=== PATIENT | female | born 1970 ===

== ENCOUNTER 2017-03-07 11:57 | Emergency (ER) | payer OTHER ==
[2017-03-07 12:20] VITALS: BMI 42.4
[2017-03-07 12:26] VITALS: BP 103/60; PULSE 87; RESP 19; TEMP 98.4; O2SAT 100
--- NOTE | 2017-03-07 13:37 | ED PDOC ---
Arrival/HPI - General Historian: Patient - General Chief Complaint: Lower Extremity Problem/Injury Time Seen by Provider: 03/07/17 12:34 - History of Present Illness Narrative History of Present Illness (Text): 03/07/17 13:35 46yo female present with complaint of left knee pain. States pain is usually worse in the morning when she wake up .States knee usually feels stiff and swollen. She saw her PMD and was advised to get US to r/o DVT. she did not take any pain medication. she otherwise denies SOB, chest pain, recent travel, OCP use, trauma, any other complaint. (Nadege Sawant A) Past Medical History - Provider Review Nursing Documentation Reviewed: Yes - Infectious Disease Hx of Infectious Diseases: None - Cardiac Hx Cardiac Disorders: Yes Hx Hypertension: Yes - Pulmonary Hx Respiratory Disorders: No - Neurological Hx Neurological Disorder: No - HEENT Hx HEENT Disorder: No - Renal Hx Renal Disorder: No - Endocrine/Metabolic Hx Endocrine Disorders: No - Hematological/Oncological Hx Blood Disorders: No - Integumentary Hx Dermatological Disorder: Yes Other/Comment: seasonal allergies - Musculoskeletal/Rheumatological Hx Musculoskeletal Disorders: No - Gastrointestinal Hx Gastrointestinal Disorders: No - Genitourinary/Gynecological Hx Genitourinary Disorders: No - Psychiatric Hx Psychophysiologic Disorder: Yes Hx Depression: Yes Hx Substance Use: No - Surgical History Other/Comment: 3 vaginal births, last one 3 years ago. - Anesthesia Hx Anesthesia: Yes Hx Anesthesia Reactions: No Family/Social History - Physician Review Nursing Documentation Reviewed: Yes Family/Social History: Unknown Family HX Smoking Status: Never Smoked Hx Alcohol Use: Yes Frequency of alcohol use: Socially Hx Substance Use: No Allergies/Home Meds Allergies/Adverse Reactions: Allergies No Known Allergies Allergy (Verified 03/07/17 12:22) Home Medications: Home Meds Medication Instructions Recorded Confirmed Cetirizine HCl [Zyrtec] 10 mg PO DAILY 03/07/17 03/07/17 Losartan [Cozaar] 12.5 mg PO DAILY 03/07/17 03/07/17 Montelukast [Singulair] 10 mg PO HS 03/07/17 03/07/17 Sertraline HCl [Zoloft] 25 mg PO DAILY 03/07/17 03/07/17 Review of Systems - Physician Review All systems were reviewed & negative as marked: Yes - Review of Systems Constitutional: Normal Eyes: Normal ENT: Normal Respiratory: Normal Cardiovascular: Normal Gastrointestinal: Normal Genitourinary Female: Normal Musculoskeletal: Arthralgias (LEft knee pain) Skin: Normal Neurological: Normal Endocrine: Normal Hemo/Lymphatic: Normal Psychiatric: Normal Physical Exam Vital Signs Reviewed: Yes Temperature: Afebrile Blood Pressure: Normal Pulse: Regular Respiratory Rate: Normal Appearance: Positive for: Well-Appearing, Non-Toxic, Comfortable, Other ( Morbidly obese) Pain Distress: None Mental Status: Positive for: Alert and Oriented X 3 - Systems Exam Head: Present: Atraumatic, Normocephalic Pupils: Present: PERRL Extroacular Muscles: Present: EOMI Conjunctiva: Present: Normal Mouth: Present: Moist Mucous Membranes Neck: Present: Normal Range of Motion Respiratory/Chest: Present: Clear to Auscultation, Good Air Exchange. No: Respiratory Distress, Accessory Muscle Use Cardiovascular: Present: Regular Rate and Rhythm, Normal S1, S2. No: Murmurs Abdomen: Present: Normal Bowel Sounds. No: Tenderness, Distention, Peritoneal Signs Back: Present: Normal Inspection Upper Extremity: Present: Normal Inspection. No: Cyanosis, Edema Lower Extremity: Present: NORMAL PULSES, Normal ROM, Neurovascularly Intact. No : Edema, CALF TENDERNESS, Cyanosis, Tenderness, Swelling, Erythema, Deformity, Temperature Abnormalties, Capillary Refill < 2 s Neurological: Present: GCS=15, CN II-XII Intact, Speech Normal Skin: Present: Warm, Dry, Normal Color. No: Rashes Psychiatric: Present: Alert, Oriented x 3, Normal Insight, Normal Concentration Vital Signs Temp Pulse Resp BP Pulse Ox 03/07/17 12:25 98.4 F 87 19 103/60 100 Medical Decision Making ED Course and Treatment: I was available for consultation during PA evaluation. The chart reviewed by me , and I agree with disposition. The documented history was done by the physician senior microsoft net developer. The documented physical exam was done by the physician senior microsoft net developer. The documented procedures were done by the physician senior microsoft net developer. (Anthony Whiting) Per US tech - Doppler was negative for DVT Left knee xray - DJD. No acute finding Result was DW the pt. She was referred to ortho. Rx of Tramadol was given for pain. TRT ED for any new or worsening symptoms. (Nadege Sawant A) - RAD Interpretation Radiology Orders: 03/07/17 12:34 KNEE LEFT 2 VIEWS (AP & LAT) [RAD] Stat DUPLEX LOWER EXTRM VEIN BILAT [US] Stat - Medication Orders Current Medication Orders: Discontinued Medications Ketorolac Tromethamine (Toradol) 60 mg IM STAT STA Stop: 03/07/17 13:38 Last Admin: 03/07/17 13:48 Dose: 60 mg Ketorolac Tromethamine (Toradol) Confirm Administered Dose 60 mg .ROUTE .STK- MED ONE Stop: 03/07/17 13:48 Disposition/Present on Arrival - Present on Arrival Any Indicators Present on Arrival: No History of DVT/PE: No History of Uncontrolled Diabetes: No Urinary Catheter: No History of Decub. Ulcer: No History Surgical Site Infection Following: None - Disposition Have Diagnosis and Disposition been Completed?: Yes Disposition Time: 13:45 Patient Plan: Discharge - Disposition Diagnosis: Knee pain Disposition: HOME/ ROUTINE Condition: STABLE Discharge Instructions (ExitCare): Knee Pain (ED) Additional Instructions: Follow up with your Doctor/orthopedist Return to ED for any new or worsening symptoms Prescriptions: traMADol [Ultram] 50 mg PO TID #10 tab Referrals: Darnell Rosas MD [Staff Provider] - Follow up with primary
--- NOTE | 2017-03-07 13:37 | RAD ---
PROCEDURE: Left Knee Radiographs. HISTORY: COMPARISON: None available FINDINGS: BONES: No acute displaced fracture. Degenerative changes including osteophyte formation. JOINTS: No dislocation. Tricompartmental joint space narrowing. JOINT EFFUSION: No significant joint effusion. OTHER FINDINGS: None. IMPRESSION: Degenerative changes including osteophyte formation and tricompartmental joint space narrowing. No acute displaced fracture, dislocation, or significant joint effusion identified. If symptoms persist, or if there is continued clinical concern, x-ray follow-up in 7-10 days should be considered.
--- NOTE | 2017-03-07 20:09 | US ---
HISTORY: Leg pain and swelling. Evaluate for DVT PHYSICIAN(S): Manuel Gao MD. TECHNIQUE: Duplex sonography and color-flow Doppler with graded compression were used to evaluate the deep venous systems of both lower extremities. FINDINGS: The visualized deep venous systems of both lower extremities are sonographically normal and compressible. Normal wave forms and augmentation are seen. There is no sonographic evidence for deep venous thrombosis in the visualized segments of both lower extremities. IMPRESSION: No sonographic evidence for deep venous thrombosis in the visualized segments of both lower extremities.
== END 2017-03-07 13:52 | disposition home or self-care (01) ==
LOC: ED 11:57
DX: M25.562 Pain in left knee (principal)
CPT/HCPCS: 73560; 93970; 96372; 99284; J1885

== ENCOUNTER 2018-12-09 10:38 | Outpatient (CLI) | payer MEDICAID | END 2018-12-09 10:39 | disposition home or self-care (01) | LOC: RAD 10:38 | DX: M54.17 Radiculopathy, lumbosacral region (principal) ==

== ENCOUNTER 2019-03-24 15:48 | Emergency (ER) | payer MEDICAID ==
[2019-03-24 15:48] VITALS: BMI 42.4
[2019-03-24 15:54] VITALS: BP 130/84; PULSE 95; RESP 18; TEMP 98.4; O2SAT 97
--- NOTE | 2019-03-24 16:28 | ED PDOC ---
Arrival/HPI - General Chief Complaint: Dental Pain Time Seen by Provider: 03/24/19 15:55 Historian: Patient - History of Present Illness Narrative History of Present Illness (Text): A 48 year old female, with no significant past medical history, presents to the emergency department complaining of right upper dental pain for the past week. Patient states she feels a throbbing sensation to right upper jaw. Denies any difficultly swallowing or throat complaints. States she went to go see Dr. Curm, however found her office closed today and decided to come here instead. Patient mentions also experiencing burning sensation to left eye every time she blinks. She reports receiving new glasses recently. She denies any trauma to the eye. No sabianist pain or L sided jaw pain. No contact lens use. Patient denies any fever, chills, vision loss/changes, any foreign body to left eye, or any other complaints at this time. Denies any history of glaucoma. PMD: Dr. Crum Time/Duration: 1 week Past Medical History - Provider Review Nursing Documentation Reviewed: Yes - Infectious Disease Hx of Infectious Diseases: None - Reproductive Menopause: Yes - Cardiac Hx Cardiac Disorders: Yes Hx Hypertension: Yes - Pulmonary Hx Respiratory Disorders: No - Neurological Hx Neurological Disorder: No - HEENT Hx HEENT Disorder: No - Renal Hx Renal Disorder: No - Endocrine/Metabolic Hx Endocrine Disorders: No - Hematological/Oncological Hx Blood Disorders: No - Integumentary Hx Dermatological Disorder: Yes Other/Comment: seasonal allergies - Musculoskeletal/Rheumatological Hx Arthritis: Yes Hx Back Pain: Yes - Gastrointestinal Hx Gastrointestinal Disorders: No - Genitourinary/Gynecological Hx Genitourinary Disorders: No - Psychiatric Hx Psychophysiologic Disorder: Yes Hx Depression: Yes Hx Substance Use: No - Surgical History Other/Comment: 3 vaginal births, last one 3 years ago. - Anesthesia Hx Anesthesia: Yes Hx Anesthesia Reactions: No Family/Social History - Physician Review Nursing Documentation Reviewed: Yes Family/Social History: No Known Family HX Smoking Status: Never Smoked Hx Alcohol Use: Yes Frequency of alcohol use: Socially Hx Substance Use: No Allergies/Home Meds Allergies/Adverse Reactions: Allergies No Known Allergies Allergy (Verified 03/24/19 15:54) Home Medications: Home Meds Medication Instructions Recorded Confirmed Cetirizine HCl [Zyrtec] 10 mg PO DAILY 03/07/17 03/24/19 Losartan [Cozaar] 12.5 mg PO DAILY 03/07/17 03/24/19 Montelukast [Singulair] 10 mg PO HS 03/07/17 03/24/19 Sertraline HCl [Zoloft] 25 mg PO DAILY 03/07/17 03/24/19 Review of Systems - Physician Review All systems were reviewed & negative as marked: Yes - Review of Systems Constitutional: absent: Weight Change, Fevers, Night Sweats Eyes: Eye Pain (left eye, burning sensation when blinking). absent: Vision Changes (and no vision loss), Photophobia, Other (no foreign body to left eye) ENT: Other (right upper dental pain, described as throbbing sensation to jaw.). absent: Hearing Changes, TMJ Pain, Voice Changes, Sore Throat, Rhinorrhea Respiratory: absent: SOB, Cough Cardiovascular: absent: Chest Pain, Palpitations, Calf Pain, CARRERO Gastrointestinal: absent: Abdominal Pain, Stool Changes Genitourinary Female: absent: Dysuria, Frequency, Hematuria Musculoskeletal: absent: Arthralgias, Back Pain, Neck Pain Skin: absent: Rash, Pruritis, Laceration Neurological: absent: Headache, Dizziness, Focal Weakness, Gait Changes Endocrine: absent: Diaphoresis Hemo/Lymphatic: absent: Adenopathy Psychiatric: absent: Anxiety, Depression Physical Exam Vital Signs Reviewed: Yes Vital Signs Temp Pulse Resp BP Pulse Ox 03/24/19 15:49 98.4 F 95 H 18 130/84 97 Temperature: Afebrile Blood Pressure: Normal Pulse: Regular Respiratory Rate: Normal Appearance: Positive for: Well-Appearing, Non-Toxic, Comfortable Pain Distress: None Mental Status: Positive for: Alert and Oriented X 3 - Systems Exam Head: Present: Atraumatic, Normocephalic. No: Tenderness, Swelling Pupils: Present: PERRL Extroacular Muscles: Present: EOMI, Other (no pain w/ eye movement. ) Conjunctiva: Present: Injected (mild, left eye). No: Other (no foreign bodies noted to left eye; left eyelids retracted with no foreign body.) Mouth: Present: Normal Lips, Normal Tounge, Normal Teeth, Other (right upper jaw pain with no abscess, no ludwigs, no left-side jaw pain.). No: Drooling, Trismus Pharnyx: Present: Normal. No: ERYTHEMA, EXUDATE, TONSILS ENLARGED, Peritonsilar Swelling, Uvular Deviation Nose (External): Present: Atraumatic. No: Abrasion, Contusion, Laceration Neck: Present: Normal Range of Motion. No: Meningeal Signs, MIDLINE TENDERNESS, JVD, Lymphadenopathy Respiratory/Chest: Present: Clear to Auscultation, Good Air Exchange. No: Respiratory Distress, Accessory Muscle Use, Wheezes, Decreased Breath Sounds Cardiovascular: Present: Regular Rate and Rhythm, Normal S1, S2. No: Murmurs Abdomen: No: Tenderness, Distention, Peritoneal Signs Back: Present: Normal Inspection. No: CVA Tenderness, Midline Tenderness Upper Extremity: Present: Normal Inspection, Normal ROM, NORMAL PULSES. No: Edema Lower Extremity: Present: Normal Inspection, NORMAL PULSES, Normal ROM. No: Edema Neurological: Present: GCS=15, CN II-XII Intact, Speech Normal Skin: Present: Warm, Dry, Normal Color. No: Rashes Lymphatic: No: Cervical Adenopathy Psychiatric: Present: Alert, Oriented x 3, Normal Insight, Normal Concentration Medical Decision Making ED Course and Treatment: 03/24/19 16:25 Impression: 48 year female with right upper dental pain described as a burning sensation, and left eye pain. No periapical abscess noted on exam. No cavity noted or appreciable ANUG or gingival abnls. Uvula midline, no tonsil enlargement / abnls. Posterior oropharynx unremarkable. L eye w/ out signs of trauma. L orbit w/ out signs of trauma. No sabianist pain or jaw claudication. 20/20 vision with glasses. Normal neuro exam, without any FND. L eye not hazy, no fixed pupil, no signs of FB. Differential Diagnosis included but are not limited to: Conjunctivitis vs. Dental Infection. Plan: -- Reassess and disposition Progress Notes: 03/24/19 16:32 Tonopen pressure to left eye 6 and 6. Fluorescence stain without abrasion or ulceration noted. neuro exam remains unremarkable. No signs of anterior uveitis. likely conjunctivitis w/ mild dental infx. No signs of ludwigs or respiratory compromise. Pt in NAd, clear for d/c home with return indications and follow up. Given F/u w/ dental clinic, ophth and pmd pt agreeable to plan - Scribe Statement The provider has reviewed the documentation as recorded by the Scribe Hanan Dabdi Provider Heena Attestation: All medical record entries made by the Heena were at my direction and personally dictated by me. I have reviewed the chart and agree that the record accurately reflects my personal performance of the history, physical exam, medical decision making, and the department course for this patient. I have also personally directed, reviewed, and agree with the discharge instructions and disposition. ] Disposition/Present on Arrival - Present on Arrival Any Indicators Present on Arrival: No History of DVT/PE: No History of Uncontrolled Diabetes: No Urinary Catheter: No History of Decub. Ulcer: No History Surgical Site Infection Following: None - Disposition Have Diagnosis and Disposition been Completed?: Yes Diagnosis: Conjunctivitis, Dental infection Disposition: HOME/ ROUTINE Disposition Time: 16:44 Condition: STABLE Discharge Instructions (ExitCare): Conjunctivitis ([place]) (DC), Dental Pain (DC) Additional Instructions: COLE MANE, thank you for letting us take care of you today. Your provider was Delvin Tillman and you were treated for LEFT EYE PAIN/SWOLLEN FACE RT SIDE. The emergency medical care you received today was directed at your acute symptoms. If you were prescribed any medication, please fill it and take as directed. It may take several days for your symptoms to resolve. Return to the Emergency Department if your symptoms worsen, do not improve, or if you have any other problems. Please contact your doctor or call one of the physicians/clinics you have been referred to that are listed on the Patient Visit Information form that is included in your discharge packet. Bring any paperwork you were given at discharge with you along with any medications you are taking to your follow up visit. Our treatment cannot replace ongoing medical care by a primary care provider outside of the emergency department. Thank you for allowing the [facility] team to be part of your care today. If you had an X-Ray or CT scan: A Radiologist will review the ED reading if any change in treatment is needed we will contact you. If you had a blood, urine, or wound culture: It will take several days for the results, if any change in treatment is needed we will contact you. If you had an STI test: It will take 48 hours for the results. Please call after 1 week if you have not heard back. Prescriptions: Amoxicillin/Clavulanate [Augmentin 875 MG-125 MG] 1 tab PO BID 7 Days #14 tab Polymyxin/Trimethoprim Sulfate [Polytrim Ophth Soln] 1 drop OS Q6H 7 Days #1 bottle Referrals: PCP,RAYO [Primary Care Provider] - Follow up with primary Za Crum MD [Family Provider] - Follow up with primary Christofer Treviño [Staff Provider] - Follow up with primary [facility] [Outside] - Follow up with primary [facility] [Outside] - Follow up with primary [facility] [place]] - Follow up with primary [facility] [Other] - Follow up with primary Forms: [facility] (Niuean)
== END 2019-03-24 16:59 | disposition home or self-care (01) ==
LOC: ED 15:48
DX: H10.9 Unspecified conjunctivitis (principal); K04.7 Periapical abscess without sinus; I10 Essential (primary) hypertension